=== PATIENT | female | born 1960 | race Caucasian/White ===

== ENCOUNTER 2019-03-19 06:00 | Outpatient (RCR) | payer BC, SELFPAY | END 2019-04-18 00:01 | LOC: SPT 06:00 | PROVIDERS: Family Provider Nurse Practitioner; Visit Provider Physician Assistant | DX: M72.2 Plantar fascial fibromatosis (principal); M22.2X1 Patellofemoral disorders, right knee | CPT/HCPCS: 97110 ×2; 97140 ×2 ==

== ENCOUNTER 2019-04-19 06:00 | Outpatient (RCR) | payer BC, SELFPAY | END 2019-05-19 23:59 | disposition home or self-care (01) | LOC: SPT 06:00 | PROVIDERS: Family Provider Nurse Practitioner; PCP Nurse Practitioner; Visit Provider Nurse Practitioner | DX: M22.2X1 Patellofemoral disorders, right knee (principal); M22.2X2 Patellofemoral disorders, left knee | CPT/HCPCS: 97110 ==

== ENCOUNTER → 2019-06-13 15:54 | Outpatient (BNVA) | payer BC, SELFPAY | PROVIDERS: Family Provider Nurse Practitioner; PCP Nurse Practitioner; Visit Provider Nurse Practitioner | DX: E03.8 Other specified hypothyroidism (principal); E55.9 Vitamin D deficiency, unspecified; M47.16 Other spondylosis with myelopathy, lumbar region; M25.561 Pain in right knee | CPT/HCPCS: 73562; 82306; 84443 ==

== ENCOUNTER 2019-06-14 15:23 | Outpatient (REF) | payer SELFPAY ==
[2019-06-14 16:28] LABS: Estmated Average Glucose 117; Hemoglobin A1C 5.7 % (4.0-6.0)
[2019-06-14 19:24] LABS: Chol HDL Ratio 8.09 mg/dL (0.0-4.40); Cholesterol 186 mg/dL (0-200); Glucose 140 mg/dL (65-115); HDL Cholesterol 23 mg/dL (60-100); LDL Cholesterol Calculated 90 mg/dL (50-129); LDL HDL Ratio 3.91 RATIO (0.00-3.22); Triglycerides 363 mg/dL (0-150)
== END 2019-06-14 15:24 | disposition home or self-care (01) ==
LOC: LAB 15:23
PROVIDERS: Family Provider Nurse Practitioner; PCP Nurse Practitioner; Visit Provider Dermatology
DX: Z13.9 Encounter for screening, unspecified (principal)
CPT/HCPCS: 80061; 82947; 83036

== ENCOUNTER 2019-06-21 08:01 | Outpatient (CLI) | payer BC, SELFPAY ==
--- NOTE | 2019-06-21 08:00 | MR_ITS ---
WS: [id number] MRI LUMBAR SPINE NONCONTRAST HISTORY: back and leg pain COMPARISON: None available. TECHNIQUE: Sagittal and axial multisequence imaging is submitted. Straightening of the normal cervical lordosis. Disc osteophyte complex centrally at C4-5 with contact on the ventral cervical cord and mild deformity. Mild S-shaped scoliosis of the thoracolumbar spine. Increased T2 signal in the central cord. On this survey image there is an increased signal over a dis tance of 1.5 cm at C7-T1. Additional increased signal in the thoracic cord beginning near the T8 leve l through T11. Mild straightening of the normal lumbar lordosis. Severe disc space narrowing at L5-S1. There is mild disc desiccation throughout the remaining levels. No marrow edema or fracture. Conus terminates normally at L1-2 disc level. L1-L2: Normal. L2-L3: Mild facet and ligamentum flavum hypertrophy. Small amount of fluid in the facet joints with n o stenosis. L3-L4: Mild facet and ligamentum flavum arthropathy without stenosis. Small amount of fluid in the fa cet joints. L4-L5: Mild ligamentum flavum hypertrophy and facet arthropathy. Fluid in the facet joints bilaterall y. There is very mild narrowing of the thecal sac and subarticular recess encroachment. Annular fissu re centrally with no significant stenosis. L5-S1: Mild annular disc bulging and osteophytic ridging around the vertebral bodies. There is a cent ral disc osteophyte complex. Additional smaller complex in the LEFT foramen. No significant contact o n the nerve roots and only mild foraminal stenosis. S2 small, 8mm Tarlov cysts. Paravertebral soft tissues are normal. MR/MR lumbar spine wo con* [id number] IMPRESSION: 1. Advanced degenerative disc disease at L5-S1 with only mild disc osteophyte encroachment upon the thecal sac. No significant stenosis. 2. Multilevel mild facet joint arthropathy throughout the thoracic spine. 3. Multifocal syrinx throughout the cervical and thoracic cord as described ab ove. Recommend follow-up MRI with and without contrast of the thoracic spine. 4. Mild subarticular recess narrowing at L4-5 predominantly due to facet disea se.
== END 2019-06-21 08:02 | disposition home or self-care (01) ==
LOC: RADSHAW 08:03
PROVIDERS: Family Provider Nurse Practitioner; PCP Nurse Practitioner; Visit Provider Nurse Practitioner
DX: M47.897 Other spondylosis, lumbosacral region (principal); M54.5 Low back pain; M25.78 Osteophyte, vertebrae; G95.0 Syringomyelia and syringobulbia
CPT/HCPCS: 72148

== ENCOUNTER → 2019-06-28 14:43 | Outpatient (BNVA) | payer BC, SELFPAY | PROVIDERS: Family Provider Nurse Practitioner; PCP Nurse Practitioner; Visit Provider Nurse Practitioner | DX: M25.561 Pain in right knee (principal) | CPT/HCPCS: 73590 ==

== ENCOUNTER → 2020-01-23 14:57 | Outpatient (BNVA) | payer BC, SELFPAY | PROVIDERS: Family Provider Nurse Practitioner; PCP Nurse Practitioner; Visit Provider Nurse Practitioner | DX: I10 Essential (primary) hypertension (principal); E03.8 Other specified hypothyroidism; E55.9 Vitamin D deficiency, unspecified; M47.16 Other spondylosis with myelopathy, lumbar region | CPT/HCPCS: 80053; 80061; 82306; 82607; 84443 ==

== ENCOUNTER → 2020-07-17 15:54 | Outpatient (BNVA) | payer BC, SELFPAY | PROVIDERS: Family Provider Nurse Practitioner; PCP Nurse Practitioner; Visit Provider Nurse Practitioner | DX: M47.16 Other spondylosis with myelopathy, lumbar region (principal); E03.8 Other specified hypothyroidism; K06.9 Disorder of gingiva and edentulous alveolar ridge, unspecified | CPT/HCPCS: 80053; 84443 ==

== ENCOUNTER → 2020-07-26 09:17 | Outpatient (BNVA) | payer BC, SELFPAY | PROVIDERS: Family Provider Nurse Practitioner; PCP Nurse Practitioner; Visit Provider Nurse Practitioner | DX: R73.9 Hyperglycemia, unspecified (principal) | CPT/HCPCS: 83036 ==

== ENCOUNTER → 2020-10-10 10:43 | Outpatient (BNVA) | payer BC, SELFPAY | PROVIDERS: Family Provider Nurse Practitioner; PCP Nurse Practitioner; Visit Provider Nurse Practitioner Family | DX: Z11.52 Encounter for screening for COVID-19 (principal); J40 Bronchitis, not specified as acute or chronic | CPT/HCPCS: 87635 ==

== ENCOUNTER → 2020-10-14 09:33 | Outpatient (BNVA) | payer BC, SELFPAY | PROVIDERS: Family Provider Nurse Practitioner; PCP Nurse Practitioner; Visit Provider Nurse Practitioner | DX: E11.65 Type 2 diabetes mellitus with hyperglycemia (principal); E55.9 Vitamin D deficiency, unspecified; I10 Essential (primary) hypertension; E03.8 Other specified hypothyroidism; Z79.4 Long term (current) use of insulin | CPT/HCPCS: 80053; 80061; 82306; 83036; 84443 ==

== ENCOUNTER 2020-12-03 08:14 | Outpatient (CLI) | payer BC, SELFPAY ==
--- NOTE | 2020-12-03 08:30 | MM_ITS ---
WS: [id number] BILATERAL DIGITAL SCREENING MAMMOGRAPHY WITH CAD CLINICAL INFORMATION: Z12.39 - Encounter for other screening for malignant neop... HISTORY: Screening mammogram. No current complaints. COMPARISON: TECHNIQUE: Bilateral CC and MLO views. FINDINGS: Scattered fibroglandular densities bilaterally. No suspicious focal mass, asymmetry, calcifications, or architectural distortion. No evidence of malignancy. MM/[place] [id number] IMPRESSION: BI-RADS: 1-Negative FOLLOW UP: 1 Year Follow-up Recommend return to annual screening mammography.
== END 2020-12-03 08:15 | disposition home or self-care (01) ==
LOC: RADSHAW 08:17
PROVIDERS: PCP Nurse Practitioner; Visit Provider Nurse Practitioner Family
DX: Z12.31 Encounter for screening mammogram for malignant neoplasm of breast (principal)
CPT/HCPCS: 77067

== ENCOUNTER → 2021-01-16 14:55 | Outpatient (BNVA) | payer BC, SELFPAY | PROVIDERS: PCP Nurse Practitioner; Visit Provider Nurse Practitioner Family | DX: Z20.822 Contact with and (suspected) exposure to COVID-19 (principal); J98.8 Other specified respiratory disorders | CPT/HCPCS: 87635 ==

== ENCOUNTER → 2021-01-27 11:53 | Outpatient (BNVA) | payer BC, SELFPAY | PROVIDERS: PCP Nurse Practitioner; Visit Provider Nurse Practitioner | DX: E11.65 Type 2 diabetes mellitus with hyperglycemia (principal); Z79.4 Long term (current) use of insulin; R00.0 Tachycardia, unspecified | CPT/HCPCS: 80053; 83036 ==

== ENCOUNTER → 2021-02-19 11:13 | Outpatient (BNVA) | payer BC, SELFPAY | PROVIDERS: PCP Nurse Practitioner; Visit Provider Nurse Practitioner | DX: R19.7 Diarrhea, unspecified (principal) | CPT/HCPCS: 87493; 87506 ==

== ENCOUNTER → 2021-03-05 10:55 | Outpatient (BNVA) | payer BC, SELFPAY | PROVIDERS: PCP Nurse Practitioner; Visit Provider Nurse Practitioner | DX: K58.0 Irritable bowel syndrome with diarrhea (principal) | CPT/HCPCS: 85025; 85651; 86140 ==

== ENCOUNTER → 2021-03-25 12:12 | Outpatient (BNVA) | payer BC, SELFPAY | PROVIDERS: PCP Nurse Practitioner; Visit Provider Nurse Practitioner | DX: Z12.4 Encounter for screening for malignant neoplasm of cervix (principal) | CPT/HCPCS: 88175 ==

== ENCOUNTER → 2021-04-21 11:26 | Outpatient (BNVA) | payer OTHER, SELFPAY | PROVIDERS: PCP Nurse Practitioner; Visit Provider Nurse Practitioner | DX: E11.65 Type 2 diabetes mellitus with hyperglycemia (principal); Z79.4 Long term (current) use of insulin; E55.9 Vitamin D deficiency, unspecified; N39.0 Urinary tract infection, site not specified | CPT/HCPCS: 80053; 81000; 82306; 83036; 84443; 87077; 87086; 87184 ==

== ENCOUNTER 2021-06-19 12:15 | Emergency (ER) | payer OTHER, SELFPAY ==
[2021-06-19 12:37] VITALS: BP 141/85; PULSE 81; RESP 14; TEMP 36.6; O2SAT 95; BMI 32.9
--- NOTE | 2021-06-19 12:48 | CT_ITS ---
WS: [id number] CT CERVICAL TRAUMA TECHNIQUE: Noncontrast CT of the cervical spine with coronal and sagittal reformatted images. CLINICAL INFORMATION: fall, neck pain COMPARISON: None. DLP: 726.[address] scans at [facility] use at least one of these dose optimization techniques: automated e xposure control; mA and/or kV adjustment per patient size (includes targeted exams where dose is matc hed to clinical indication); or iterative reconstruction. FINDINGS: Straightening of the normal cervical lordosis. Mild cervical curve. Moderate spondylitic changes. Dis c space narrowing worse at C4-C5 C5-C6 and C6-C7. Disc osteophytic ridging with mild central canal st enosis C4-C5. Multilevel bony foraminal narrowing worse at RIGHT C3-C4, LEFT C4-C5, LEFT C5-C6 and LE FT C6-C7. Normal craniocervical junction. Normal C1-C2 articulation. Dens is normal in appearance. Normal occip ital condyles. No high-grade spinal canal narrowing. Normal C1 ring. No evidence of acute fracture or dislocation. Normal prevertebral soft tissues. Mastoids air cells are well aerated. CT/CT cervical spin wo con* [id number] IMPRESSION: 1. No evidence of acute fracture or dislocation in the cervical spine. 2. Nondepressed LEFT parietal skull fracture described on the head CT
--- NOTE | 2021-06-19 12:48 | XR_ITS ---
WS: [id number] Lumbar spine, 3 views, 06/19/2021 Clinical Data: fall, back pain Comparison: Lumbar spine, 07/05/2017. Findings: No compression fractures or subluxation is seen. There is degenerative disc narrowing at L5-S1. There is minimal osteophyte formation from L3 through L5. The transverse processes and SI joints are emerald l. XR/XR lumbar spine 2-3V* [id number] Impression: 1. Degenerative disc narrowing at L5-S1. 2. Osteoarthritic spurring L3-L5.
--- NOTE | 2021-06-19 12:48 | CT_ITS ---
WS: [id number] CT HEAD TECHNIQUE: Noncontrast CT of the head obtained from the skullbase to the vertex. CLINICAL INFORMATION: fall, keita/a, n/v COMPARISON: None. DLP: 831.[address] scans at [facility] use at least one of these dose optimization techniques: automated e xposure control; mA and/or kV adjustment per patient size (includes targeted exams where dose is matc hed to clinical indication); or iterative reconstruction. FINDINGS: No evidence of intracranial hemorrhage or mass effect. Ventricular system and basal cisterns are reynolds nt. Mild small vessel changes with mild parenchymal volume loss. Tiny chronic lacunar infarct RIGHT c audate. No extra-axial fluid collections. No evidence of mass or mass effect. Normal hermosillo-white diffe rentiation. Tiny nondepressed LEFT parietal skull fracture extending to the skull base. Small amount of underlyin g soft tissue edema. No visualized blood products. CT/CT head wo con* [id number] IMPRESSION: 1. No evidence of intracranial hemorrhage or mass effect. 2. Mild small vessel changes. Mild parenchymal volume loss. 3. Tiny nondepressed LEFT parietal skull fracture extending to the skull base. Small amount of underlying soft tissue edema. No visualized blood products. Notified GREYSON Amador at 06/19/2021 1:43 PM.
--- NOTE | 2021-06-19 12:50 | W.ED.HA ---
HPI - Headache General: Chief Complaint: Headache Stated Complaint: Fall, Hit head and back pain, dizzy Time Seen by Provider: 06/19/21 12:44 History of Present Illness: Patient fell last Wednesday on the ice striking her head first in her low back. Patient complains about headache nausea and vomiting decreased appetite feeling sleepy and feeling dizzy. Also complains about low back pain. History low back problems. Associated symptoms: Reports nausea and vomiting; Deny chest pain, fever(s) or rash Review of Systems Const: Denies: fever(s), chills or body aches Eyes: Denies: eye discomfort ENMT: Denies: throat pain Card: Denies: chest pain Resp: Denies: dyspnea GI: Reports: nausea and vomiting; Denies: abdominal pain Musc: Reports: neck pain and back pain Skin/Breast: Denies: rash Neuro: Reports: headache(s) and dizziness Psych: Denies: depression or suicidal ideation PFSH ED PFSH: Medical History Adult onset hypothyroidism Anxiety and depression Chronic gingival disease Diabetes mellitus with hyperglycemia, with long-term current use of insulin HTN, goal below 130/80 Lumbar spondylosis with myelopathy Sleep disorder Vitamin D deficiency Surgical History History of cholecystectomy History of tubal ligation Family History Other Cancer Diabetes Hypertension Social History Second hand smoke exposure: No Smoking risk assessment/counseling performed?: No Alcohol intake: current Alcohol intake frequency: holidays/special occasions only Desire information about alcohol rehabilitation?: No Counseling given: No Desire information about substance/drug rehabilitation?: No Counseling given: No Caregiver/support person: No Lives independently: Yes Household members: spouse Housing: House Marital status: service: No Current occupational status: employed History of recent travel: No Current gender identity: Female Physical Exam Const: COMMON NORMALS: no acute distress, patient oriented x3 and alert HENMT: COMMON NORMALS: normocephalic and external ears normal HEAD & SCALP: normocephalic EXTERNAL EAR: Yes external ears normal Eye: COMMON NORMALS: EOMs intact bilaterally Neck/C-Spine: COMMON NORMALS: no meningeal signs and no JVD CERVICAL SPINE: Yes Paracervical muscle tenderness Resp: COMMON NORMALS: normal respiratory effort and No use of accessory muscles Cardio: COMMON NORMALS: no JVD GI: INSPECTION: Yes normal to inspection Back/Pelvis: LUMBAR SPINE/LOWER BACK: Yes paraspinal muscle tenderness (Left side greater than right) Extremity: COMMON NORMALS: normal to inspection and full ROM Neuro: COMMON NORMALS: patient oriented x3 SENSORIUM/ORIENTATION: Yes alert MENINGEAL SIGNS: Yes no meningeal signs SPEECH: speech normal GAIT: Yes Normal gait present PUPIL EXAM: Normal pupillary reactivity/response: bilateral Psych: COMMON NORMALS: mental status grossly normal Skin: COMMON NORMALS: no rashes or lesions noted GENERAL SKIN EXAM: no rashes or lesions noted Course Vital Signs: Vital signs: Vital Signs Temperature 97.9 F 06/19/21 12:37 Pulse Rate 81 06/19/21 12:37 Respiratory Rate 14 06/19/21 12:37 Blood Pressure 141/85 06/19/21 12:37 Pulse Oximetry 95 06/19/21 12:37 MDM - Headache Medical Decision Making Patient presents with head pain and back pain from a fall that was sustained a week ago. Patient's been having some nausea and occasional vomiting. Has some dizziness. CTs and x-rays done CT revealed nondepressed parietal skull fracture on left side. No bleeding noted cervical CT was negative and low back x-rays were negative for any concerning findings. Case discussed with Dr. Campos referral was made neurologist. Patient provided prescription and follow-up instructions Lab Data Radiology Impressions Cervical Spine CT 06/19/21 12:48 IMPRESSION: 1. No evidence of acute fracture or dislocation in the cervical spine. 2. Nondepressed LEFT parietal skull fracture described on the head CT Head CT 06/19/21 12:48 IMPRESSION: 1. No evidence of intracranial hemorrhage or mass effect. 2. Mild small vessel changes. Mild parenchymal volume loss. 3. Tiny nondepressed LEFT parietal skull fracture extending to the skull base. Small amount of underlying soft tissue edema. No visualized blood products. Notified GREYSON Amador at 06/19/2021 1:43 PM. Lumbar Spine X-Ray 06/19/21 12:48 Impression: 1. Degenerative disc narrowing at L5-S1. 2. Osteoarthritic spurring L3-L5. Discharge Plan Discharge Patient Disposition: Home Clinical Impression: Fall due to ice or snow Qualifiers: Encounter type: initial encounter Qualified Code(s): W00.9XXA - Unspecified fall due to ice and snow, initial encounter Back pain Qualifiers: Back pain location: low back pain Chronicity: acute Back pain laterality: bilateral Sciatica presence: without sciatica Qualified Code(s): M54.50 - Low back pain, unspecified Fracture of parietal bone of skull Qualifiers: Encounter type: initial encounter Fracture type: closed Qualified Code(s): S02.0XXA - Fracture of vault of skull, initial encounter for closed fracture Condition: Stable Prescriptions: New Zofran 4 mg tablet 4 mg PO Q8H 3 Days Qty: 9 0RF Celebrex 100 mg capsule 100 mg PO BID Qty: 20 0RF No Action promethazine-DM 6.25-15 mg/5 mL syrup 5 - 10 ml PO Q6H PRN (Reason: cough) Qty: 473 0RF gabapentin 600 mg tablet 600 mg PO TID Qty: 180 1RF acetaminophen 500 mg capsule 500 mg PO .hs PRN0RF metformin 500 mg tablet extended release 24 hr 1,000 mg PO DAILY Qty: 180 1RF Hold Instructions: Loose stools (DME) nebulizer accessories Kit See Rx Instructions .Route Qty: 1 0RF Rx Instructions: As directed levothyroxine [Synthroid] 100 mcg tablet 100 mcg PO DAILY Qty: 90 1RF cyclobenzaprine 10 mg tablet 10 mg PO BID Qty: 180 1RF chlorhexidine gluconate [Peridex] 0.12 % mouthwash 15 ml buccal BID Qty: 118 0RF amitriptyline 100 mg tablet 100 mg PO .at bedtime Qty: 90 1RF terbinafine HCl 250 mg tablet 250 mg PO DAILY 30 Days Qty: 30 2RF Farxiga 10 mg tablet 10 mg PO QAM Qty: 90 0RF nystatin 100,000 unit/gram cream 1 applic topical BID Qty: 30 1RF (DME) Disposable nebulizer circuit See Rx Instructions .ROUTE .MEDSUPPLY Qty: 1 0RF Rx Instructions: As directed Questran Light 4 gram powder 4 g PO TID Qty: 210 0RF Rx Instructions: administer w/meal; avoid other meds within 1hr before or 4-6hr after dose hyoscyamine sulfate [Levbid] 0.375 mg tablet extended release 12 hr 0.375 mg PO Q12H Qty: 60 0RF (DME) lancets [ReliOn Thin Lancets] 26 gauge misc See Rx Instructions .Route Qty: 100 2RF Rx Instructions: use one daily metoprolol succinate [Toprol XL] 50 mg tablet extended release 24 hr 50 mg PO DAILY Qty: 90 0RF diclofenac sodium 1 % gel 2 g TOPICAL QID PRN (Reason: pain) Qty: 300 0RF nitrofurantoin monohyd/m-cryst [Macrobid] 100 mg capsule 100 mg PO Q12H 7 Days Qty: 14 0RF Rx Instructions: must administer with a meal/food buspirone 10 mg tablet 10 mg PO BID Qty: 180 0RF Ozempic 0.25 mg or 0.5 mg(2 mg/1.5 mL) pen injector 0.5 mg SUBCUT .weekly Qty: 1.5 2RF (DME) ReliOn Prime Test Strips Strip See Rx Instructions .Route Qty: 100 5RF Rx Instructions: use 3 times day as needed Discharge Orders: Discharge ED (Routine); Ordered 06/19/21 Ordered By: Hector Bradshaw Referrals: Kiara Murray, VINNIEC [Primary Care Provider] - Discharge Diet: Advance as tolerated Discharge Activity: Increase activity as tolerated Patient Instructions: Skull Fracture (ED) Activity Restrictions/Additional Instructions: Follow-up with medical provider as directed. Take medications as prescribed. Return to the ER or your medical provider if condition worsens. Please read and understand discharge instructions. If any questions ask please. Can apply ice to areas of discomfort. Hospital will contact you with a follow-up appointment for the neurologist. Coding Level of Care Code ED Manager Home Improvement for [facility] Fwd Exam Comprehensive
--- NOTE | 2021-06-20 09:25 | DCPLANNER ---
Addendum entered by Georgie Maravilla 12/09/21 14:10: patient had a follow up appointment scheduled with neurology - patient did not attend appointment. Addendum entered by Georgie Maravilla 07/22/21 15:32: Patient has a follow up appointment scheduled for September at 10:[address] Charles. Clinic will notify patient with appointment information. Addendum entered by Georgie Maravilla 07/17/21 06:51: cytology manager sent a message to neurology to confirm if an appointment had been scheduled for patient. Original Note: cytology manager had message to schedule a follow up appointment for patient with neurology. cytology manager emailed patients information to the neurology clinic. Patients information will be printed and reviewed. Clinic will call patient with appointment information.
== END 2021-06-19 14:19 | disposition home or self-care (01) ==
PROVIDERS: Emergency Provider Nurse Practitioner Family; PCP Nurse Practitioner
DX: M54.50 Low back pain, unspecified (principal); S02.0XXA Fracture of vault of skull, initial encounter for closed fracture; Z79.84 Long term (current) use of oral hypoglycemic drugs; E11.9 Type 2 diabetes mellitus without complications; I10 Essential (primary) hypertension; W00.0XXA Fall on same level due to ice and snow, initial encounter
CPT/HCPCS: 70450; 72100; 72125; 99281

== ENCOUNTER → 2021-07-22 16:42 | Outpatient (BNVA) | payer OTHER, SELFPAY | PROVIDERS: PCP Nurse Practitioner; Visit Provider Nurse Practitioner | DX: E03.8 Other specified hypothyroidism (principal); E11.65 Type 2 diabetes mellitus with hyperglycemia; Z79.4 Long term (current) use of insulin | CPT/HCPCS: 80053; 83036; 84443 ==

== ENCOUNTER → 2021-09-25 16:27 | Outpatient (BNVA) | payer OTHER, SELFPAY | PROVIDERS: PCP Nurse Practitioner; Visit Provider Nurse Practitioner | DX: E11.65 Type 2 diabetes mellitus with hyperglycemia (principal); Z79.4 Long term (current) use of insulin; E55.9 Vitamin D deficiency, unspecified; B37.0 Candidal stomatitis; L03.90 Cellulitis, unspecified | CPT/HCPCS: 80053; 80061; 82306; 83036; 84443 ==

== ENCOUNTER → 2021-12-31 10:27 | Outpatient (BNVA) | payer OTHER, SELFPAY | PROVIDERS: PCP Nurse Practitioner; Visit Provider Nurse Practitioner | DX: E11.65 Type 2 diabetes mellitus with hyperglycemia (principal); Z79.4 Long term (current) use of insulin; F41.9 Anxiety disorder, unspecified; F32.9 Major depressive disorder, single episode, unspecified; M47.16 Other spondylosis with myelopathy, lumbar region; R00.0 Tachycardia, unspecified; N39.0 Urinary tract infection, site not specified | CPT/HCPCS: 80053; 80061; 81000; 83036; 84443; 87077; 87086; 87184 ==

== ENCOUNTER 2022-02-03 09:38 | Emergency (ER) | payer OTHER, SELFPAY ==
[2022-02-03 09:56] VITALS: BP 139/93; PULSE 93; RESP 14; TEMP 36.8; O2SAT 100; BMI 33.4
--- NOTE | 2022-02-03 10:17 | CT_ITS ---
WS: [id number] CT HEAD TECHNIQUE: Noncontrast CT of the head obtained from the skullbase to the vertex. CLINICAL INFORMATION: fall and hit head. +LOC COMPARISON: June 19, 2021 DLP: 1299.[address] scans at [facility] use at least one of these dose optimization techniques: automated e xposure control; mA and/or kV adjustment per patient size (includes targeted exams where dose is matc hed to clinical indication); or iterative reconstruction. FINDINGS: No evidence of intracranial hemorrhage or mass effect. Ventricular system and basal cisterns are reynolds nt. Mild small vessel changes with mild parenchymal volume loss. No extra-axial fluid collections. No evidence of mass or mass effect. Prior healed LEFT parietal nondepressed skull fracture. Paranasal sinuses and mastoid air cells are well aerated. .Normal visualized soft tissues. CT/CT head wo con* [id number] IMPRESSION: 1. No evidence of intracranial hemorrhage or mass effect. 2. No acute intracranial findings.
--- NOTE | 2022-02-03 10:17 | XRR_ITS ---
PROCEDURE INFORMATION: Exam: XR Right Knee Exam date and time: 02/03/2022 10:25 AM Age: 61 years old Clinical indication: Injury or trauma; Fall; Blunt trauma; Injury date: Today; Injury details: Tripped over her shoe and fell back words and back of head hit oak table. She also endorses having some right knee and left shoulder pain as well. She was able to ambulate on right knee but did endorse having some pain. ; Additional info: Fall with knee pain TECHNIQUE: Imaging protocol: Radiologic exam of the Right knee. Views: 3 views. COMPARISON: CR XR knee RT 3V* [id number] 06/13/2019 3:54 PM FINDINGS: Bones/joints: Similar expansile lesion in the proximal fibular diaphysis, again likely reflecting an enchondroma. This appears unchanged since 06/28/2019. No acute fracture or malalignment. Mild tricompartmental degenerative changes. No joint effusion. Patellar enthesopathy. Soft tissues: Normal. XR/XR knee RT 3V* [id number] IMPRESSION: No acute fracture or malalignment.
--- NOTE | 2022-02-03 10:17 | CT_ITS ---
WS: [id number] CT CERVICAL TRAUMA TECHNIQUE: Noncontrast CT of the cervical spine with coronal and sagittal reformatted images. CLINICAL INFORMATION: fall and hit head-neck pain COMPARISON: None. DLP: 1299.[address] scans at [facility] use at least one of these dose optimization techniques: automated e xposure control; mA and/or kV adjustment per patient size (includes targeted exams where dose is matc hed to clinical indication); or iterative reconstruction. FINDINGS: Straightening of the normal cervical lordosis. Mild spondylitic changes. Disc space narrowing worse a t C4-C5 C5-C6 and C6-C7. Disc osteophyte complex C4-C5 with osteophytic ridging. Normal craniocervica l junction. Normal C1-C2 articulation. Dens is normal in appearance. Normal occipital condyles. No hi gh-grade spinal canal narrowing. Normal C1 ring. No evidence of acute fracture or dislocation. Normal prevertebral soft tissues. Mastoids air cells are well aerated. CT/CT cervical spin wo con* [id number] IMPRESSION: No evidence of acute fracture or dislocation.
--- NOTE | 2022-02-03 10:17 | XRR_ITS ---
PROCEDURE INFORMATION: Exam: XR Left Shoulder Exam date and time: 02/03/2022 10:25 AM Age: 61 years old Clinical indication: Injury or trauma; Fall; Blunt trauma (contusions or hematomas); Injury details: Tripped over her shoe and fell back words and back of head hit oak table. She also endorses having some right knee and left shoulder pain as well. She was able to ambulate on right knee but did endorse having some pain. ; Additional info: Fall with shoulder pain TECHNIQUE: Imaging protocol: Radiologic exam of the Left shoulder. Views: 2 or more views. COMPARISON: CT cervical spin wo con* [id number] 06/19/2021 1:15 PM FINDINGS: Bones/joints: No acute fracture or malalignment. Moderate acromioclavicular and glenohumeral joint degenerative changes. Soft tissues: Normal. XR/XR shoulder LT min 2V* [id number] IMPRESSION: No acute fracture or malalignment.
--- NOTE | 2022-02-03 10:18 | ED_ITS ---
HPI - Fall General: Chief Complaint: Fall Stated Complaint: fall, hit head Time Seen by Provider: 02/03/22 09:44 History of Present Illness: Patient is a 61-year-old female comes to the ED with head injury. Patient says head injury occurred just prior to arrival. She was walking in her house and tripped over her shoe and fell back words and back of head hit oak table. Patient was found on the ground by her . Endorses loss of consciousness. Since fall and head injury she is feeling tired and is having a headache and neck pain. She rates her pain a 10 out of 10. She also endorses having some right knee and left shoulder pain as well. She was able to ambulate on right knee but did endorse having some pain. Past medical history of a fall 8 to 9 months ago where she sustained a skull fracture. Denies any seizure history. Endorses feeling really drowsy. Patient denies being on any blood thinners. Associated symptoms-after fall: Reports headache(s) and neck pain; Denies abdominal pain, chest pain or hematuria Review of Systems Const: Reports: fatigue (Drowsy); Denies: fever(s) or chills Eyes: Denies: change in vision or eye discomfort ENMT: Denies: throat pain, odynophagia, nasal discharge or nasal congestion Card: Denies: chest pain, palpitations, edema, swelling of feet/ankles, dyspnea on exertion or orthopnea Resp: Denies: dyspnea, productive cough or non-productive cough GI: Denies: abdominal pain, nausea, vomiting, diarrhea, constipation or hematochezia : Denies: flank pain, dysuria or hematuria Musc: Reports: neck pain and extremity pain (Left shoulder and right knee); Denies: back pain or extremity swelling Skin/Breast: Denies: rash or new lesions Neuro: Reports: headache(s); Denies: numbness in extremities or weakness in extremities PFSH ED PFSH: Medical History Adult onset hypothyroidism Anxiety and depression Chronic gingival disease Diabetes mellitus with hyperglycemia, with long-term current use of insulin HTN, goal below 130/80 Lumbar spondylosis with myelopathy Sleep disorder Vitamin D deficiency Surgical History History of cholecystectomy History of tubal ligation Family History Other Cancer Diabetes Hypertension Social History Smoking and tobacco status: never smoked Second hand smoke exposure: No Smoking risk assessment/counseling performed?: No Alcohol intake: current Alcohol intake frequency: holidays/special occasions only Desire information about alcohol rehabilitation?: No Counseling given: No Desire information about substance/drug rehabilitation?: No Counseling given: No Caregiver/support person: No Lives independently: Yes Household members: spouse Housing: House Marital status: service: No Current occupational status: employed History of recent travel: No Current gender identity: Female Physical Exam Const: COMMON NORMALS: no acute distress, patient oriented x3 and alert GENERAL APPEARANCE: cooperative HENMT: COMMON NORMALS: normocephalic HEAD & SCALP: normocephalic MOUTH: Normal oral and palatal mucosa present THROAT: posterior oropharynx normal and uvula midline Eye: COMMON NORMALS: Equal, round and reactive pupils present, EOMs intact bilaterally and conjunctivae normal GENERAL EYE: appearance normal, both eyes and all related structures CONJUNCTIVA: Yes conjunctivae normal PUPIL: Yes Equal, round and reactive pupils present Neck/C-Spine: COMMON NORMALS: supple GENERAL: Yes normal visual inspection Resp: COMMON NORMALS: normal respiratory effort, No retractions, No use of accessory muscles and clear to auscultation bilaterally AUSCULTATION: clear to auscultation bilaterally Cardio: COMMON NORMALS: regular rate, regular rhythm, S1 normal heart sound present, S2 normal heart sound present, No gallops present (Cardio), No clicks present (Cardio), No murmurs present (Cardio) and Peripheral pulses 2+ throughout RATE: regular rate RHYTHM: regular rhythm HEART SOUNDS: S1 normal heart sound present and S2 normal heart sound present PERIPHERAL PULSES: Peripheral pulses 2+ throughout GI: COMMON NORMALS: Normal to inspection, nondistended, normoactive bowel sounds present, Soft to palpation, non-tender and no masses PALPATION: Yes Soft to palpation : COMMON NORMALS: Yes no CVA tenderness BLADDER/KIDNEY EXAM: Yes no CVA tenderness Back/Pelvis: COMMON NORMALS: no CVA tenderness Extremity: COMMON NORMALS: normal to inspection Neuro: COMMON NORMALS: patient oriented x3 SENSORIUM/ORIENTATION: Yes alert GAIT: Yes Normal gait present Skin: GENERAL SKIN EXAM: dry skin Course Vital Signs: Vital signs: Vital Signs Temperature 98.3 F 02/03/22 09:56 Pulse Rate 93 02/03/22 09:56 Respiratory Rate 18 02/03/22 10:32 Blood Pressure 139/93 02/03/22 09:56 Pulse Oximetry 100 02/03/22 09:56 Oxygen Delivery Me thod 02/03/22 09:56 MDM - Fall Medical Decision Making Patient is a 61-year-old female comes to the ED with head injury. Patient says head injury occurred just prior to arrival. She was walking in her house and tripped over her shoe and fell back words and back of head hit oak table. Patient was found on the ground by her . Endorses loss of consciousness. She is complaining of having a headache, neck pain, left shoulder and right kne e pain from fall. Vitals are stable. Exam is benign. CT cervical spine, CT head showed no acute findings or fractures noted. X-ray of right knee and left shoulder showed no acute fractures or findings. Patient was stable for discharge home. She was sent home with a prescription for muscle relaxer and Celebrex. Follow-up with PCP in the next 7 to 10 days for reevaluation. Patient understood and agreed with plan. Lab Data Radiology Impressions Cervical Spine CT 02/03/22 10:17 IMPRESSION: No evidence of acute fracture or dislocation. Head CT 02/03/22 10:17 IMPRESSION: 1. No evidence of intracranial hemorrhage or mass effect. 2. No acute intracranial findings. Knee X-Ray 02/03/22 10:17 IMPRESSION: No acute fracture or malalignment. Shoulder X-Ray 02/03/22 10:17 IMPRESSION: No acute fracture or malalignment. Laboratory Results POC Glucose 168 mg/dL (70-110) H 02/03/22 10:19 Discharge Plan Discharge Patient Disposition: Home Clinical Impression: Minor head injury with loss of consciousness Qualifiers: Encounter type: initial encounter Qualified Code(s): S06.9X9A - Unspecified intracranial injury with loss of consciousness of unspecified duration, initial encounter Left shoulder pain Qualifiers: Chronicity: acute Qualified Code(s): M25.512 - Pain in left shoulder Condition: Stable Prescriptions: New methocarbamol 750 mg tablet 750 mg PO Q8H PRN (Reason: muscle spasms and pain) Qty: 15 0RF celecoxib 100 mg capsule 100 mg PO BID PRN (Reason: pain) Qty: 20 0RF No Action acetaminophen 500 mg capsule 500 mg PO .hs PRN (DME) nebulizer accessories Kit See Rx Instructions .Route Qty: 1 0RF Rx Instructions: As directed terbinafine HCl 250 mg tablet 250 mg PO DAILY 30 Days Qty: 30 2RF nystatin 100,000 unit/gram cream 1 applic topical BID Qty: 30 1RF nystatin 100,000 unit/mL suspension 10 ml PO .2 times Qty: 200 0RF Rx Instructions: swish and swallow mupirocin 2 % ointment 1 applic topical BID Qty: 22 0RF chlorhexidine gluconate [Peridex] 0.12 % mouthwash 15 ml buccal BID Qty: 118 0RF Rhofade 1 % cream 1 applic topical DAILY Qty: 30 0RF Rx Instructions: Apply to face once daily in the morning Levemir FlexTouch U-100 Insuln 100 unit/mL (3 mL) insulin pen 30 unit SUBCUT DAILY Qty: 15 2RF levothyroxine [Synthroid] 75 mcg tablet 75 mcg PO DAILY Qty: 90 0RF Farxiga 10 mg tablet 10 mg PO QAM Qty: 90 0RF buspirone 10 mg tablet 10 mg PO BID Qty: 180 0RF amitriptyline 50 mg tablet 50 mg PO .at bedtime Qty: 90 0RF cyclobenzaprine 10 mg tablet 10 mg PO BID Qty: 180 0RF gabapentin 600 mg tablet See Rx Instructions PO .COMPLEX Qty: 180 0RF Rx Instructions: 600mg AM and 1200mg PM orally; metoprolol succinate [Toprol XL] 50 mg tablet extended release 24 hr 50 mg PO DAILY Qty: 90 0RF (DME) Disposable nebulizer circuit See Rx Instructions .ROUTE .MEDSUPPLY Qty: 1 0RF Rx Instructions: As directed Questran Light 4 gram powder 4 g PO TID Qty: 210 0RF Rx Instructions: administer w/meal; avoid other meds within 1hr before or 4-6hr after dose (DME) lancets [ReliOn Thin Lancets] 26 gauge misc See Rx Instructions .Route Qty: 100 2RF Rx Instructions: use one daily diclofenac sodium 1 % gel 2 g TOPICAL QID PRN (Reason: pain) Qty: 300 0RF Hold Instructions: Doctor's Order (DME) ReliOn Prime Test Strips Strip See Rx Instructions .Route Qty: 100 5RF Rx Instructions: use 3 times day as needed (DME) pen needle, diabetic 33 gauge x 5/32 needle See Rx Instructions .ROUTE .MEDSUPPLY Qty: 100 5RF Rx Instructions: 1 times day levofloxacin 500 mg tablet 500 mg PO Q24H Qty: 5 0RF Discharge Orders: Discharge ED (Routine); Ordered 02/03/22 Ordered By: Mando Mendoza Referrals: Kiara Murray, COMPUTER HARDWARE TECHNICIAN-C [Primary Care Provider] - Discharge Diet: Regular Discharge Activity: Increase activity as tolerated Patient Instructions: Head Injury (ED) Activity Restrictions/Additional Instructions: Follow-up with medical provider as directed in the next 5 to 7 days for reevaluation. Take medications as prescribed. Return to the ER or your medical provider if condition worsens. Please read and understand discharge instructions. Thank you for choosing [facility] for your healthcare needs today. Please realize this is an emergency room and that we are providing you with a medical screening exam and this may not be complete and all inclusive of all the testing and or work up that you may need to determine your ailment or severity of your illness. It is very important that you follow up as instructed or that you return to the Emergency Department should you have concerns or if your condition changes or worsens in any way. Coding Level of Care Code ED Chip Tester for Cody Beltrán Exam Comprehensive
[2022-02-03 10:23] LABS: Glucose Point of Care 168 mg/dL (70-110)
[2022-02-03] MEDS: ondansetron 2 mg/ML SDV 2 mL 4 MG IM (10:31)
[2022-02-03 10:32] VITALS: RESP 18
[2022-02-03] MEDS: morphine 4 mg/mL SDV 1 mL IM (10:32)
== END 2022-02-03 11:44 | disposition home or self-care (01) ==
PROVIDERS: Emergency Provider Physician Assistant; PCP Nurse Practitioner
DX: S06.899A Other specified intracranial injury with loss of consciousness of unspecified duration, initial encounter (principal); Z79.4 Long term (current) use of insulin; E11.9 Type 2 diabetes mellitus without complications; I10 Essential (primary) hypertension; W18.09XA Striking against other object with subsequent fall, initial encounter
CPT/HCPCS: 36416; 70450; 72125; 73030; 73562; 82962; 96372; 99285; J2270; J2405

== ENCOUNTER → 2022-02-10 14:45 | Outpatient (BNVA) | payer OTHER, SELFPAY | PROVIDERS: PCP Nurse Practitioner; Visit Provider Nurse Practitioner | DX: E11.65 Type 2 diabetes mellitus with hyperglycemia (principal); Z79.4 Long term (current) use of insulin | CPT/HCPCS: 81000 ==

== ENCOUNTER → 2022-05-11 15:16 | Outpatient (BNVA) | payer OTHER, SELFPAY | PROVIDERS: PCP Nurse Practitioner; Visit Provider Nurse Practitioner | DX: E11.65 Type 2 diabetes mellitus with hyperglycemia (principal); Z79.4 Long term (current) use of insulin | CPT/HCPCS: 80053; 80061; 81000; 83036; 84443 ==

== ENCOUNTER → 2022-07-06 13:48 | Outpatient (BNVA) | payer OTHER, SELFPAY | PROVIDERS: PCP Nurse Practitioner; Visit Provider Nurse Practitioner | DX: E11.65 Type 2 diabetes mellitus with hyperglycemia (principal); Z79.4 Long term (current) use of insulin; E03.8 Other specified hypothyroidism | CPT/HCPCS: 80053; 81000; 83036; 84443 ==

== ENCOUNTER 2022-08-28 02:13 | Emergency (ER) | payer OTHER, MEDICAID, SELFPAY ==
--- NOTE | 2022-08-28 02:15 | ECG_ITS ---
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 Measurements Intervals [place] Rate: 103 P: 37 VT: 140 QRS: -11 QRSD: 100 T: 54 QT: 376 QTc: 494 Interpretive Statements SINUS TACHYCARDIA POSSIBLE LEFT ATRIAL ENLARGEMENT [-0.1mV P-WAVE IN V1/V2] INCOMPLETE RIGHT BUNDLE BRANCH BLOCK [90+ ms QRS DURATION, TERMINAL R IN V1/V2, 40+ ms S IN I/aVL/V4/V5/V6] POSSIBLE ANTERIOR MYOCARDIAL INFARCTION , PROBABLY OLD [30 ms Q WAVE IN V3/V4, OR R < 0.2 mV IN V4] ABNORMAL RHYTHM ECG No previous ECG available for comparison Electronically Signed On 08-28-2022 11:57:16 CDT by Bradley Evrin M.D. [id number]
[2022-08-28 02:17] VITALS: BP 144/88; PULSE 102; RESP 18; TEMP 36.6; O2SAT 93; BMI 33.4
--- NOTE | 2022-08-28 02:25 | XRR_ITS ---
PROCEDURE INFORMATION: Exam: XR Chest Exam date and time: 08/28/2022 2:43 AM Age: 62 years old Clinical indication: Pain; Chest pressure; Additional info: Cp TECHNIQUE: Imaging protocol: Radiologic exam of the chest. Views: 1 view. COMPARISON: CT chest abdpel w/*[id number] 10/08/2017 1:37 PM FINDINGS: Lungs: Some strandy and hazy opacities are seen in lower hemithoraces bilaterally likely representing atelectasis versus parenchymal pleural scarring. Pleural spaces: See Lungs finding. Heart/Mediastinum: Unremarkable. No cardiomegaly. Bones/joints: Unremarkable. XR/XR chest 1V portable [id number] IMPRESSION: Probable bilateral basilar atelectasis versus parenchymal or pleural scarring.
--- NOTE | 2022-08-28 02:26 | ED_ITS ---
HPI - URI/Sore Throat General: Chief Complaint: Upper Respiratory Infection Stated Complaint: Jaw and Arm Pain Time Seen by Provider: 08/28/22 02:18 Source: patient Mode of arrival: ambulatory Limitations: no limitations History of Present Illness: 62-year-old female states she has had a cough over the last 3 days she states that she has been having sharp chest pains for the last 2 days states pain is much worse with palpation or movement and when she coughs she states she has pain in her neck and arm as well is also worse with movement and palpation. The pain sharp in nature rates an 8 out of 10 she denies any dyspnea denies any fevers. Associated symptoms: Reports chest pain; Deny abdominal pain, chills, diarrhea, fever(s), nausea or vomiting Review of Systems Const: Denies: fever(s) or chills Eyes: Denies: blurry vision or eye discomfort ENMT: Denies: throat pain or dental pain Card: Reports: chest pain Resp: Reports: non-productive cough; Denies: dyspnea GI: Denies: abdominal pain, nausea, vomiting or diarrhea : Denies: dysuria Musc: Denies: neck pain or back pain Skin/Breast: Denies: rash PFSH ED PFSH: Medical History Adult onset hypothyroidism Anxiety and depression Chronic gingival disease Diabetes mellitus with hyperglycemia, with long-term current use of insulin HTN, goal below 130/80 Lumbar spondylosis with myelopathy Sleep disorder Vitamin D deficiency Surgical History History of cholecystectomy History of tubal ligation Family History Other Cancer Diabetes Hypertension Social History Smoking and tobacco status: never smoked Second hand smoke exposure: No Smoking risk assessment/counseling performed?: No Alcohol intake: current Alcohol intake frequency: holidays/special occasions only Desire information about alcohol rehabilitation?: No Counseling given: No Substance/Drug Use: never Desire information about substance/drug rehabilitation?: No Counseling given: No Caregiver/support person: No Lives independently: Yes Household members: spouse Housing: House Marital status: service: No Current occupational status: employed Do you think of yourself as: Straight/Heterosexual Current gender identity: Female Physical Exam Const: COMMON NORMALS: no acute distress and patient oriented x3 HENMT: COMMON NORMALS: normocephalic and atraumatic HEAD & SCALP: normocephalic and atraumatic Eye: COMMON NORMALS: conjunctivae normal CONJUNCTIVA: Yes conjunctivae normal Neck/C-Spine: COMMON NORMALS: full ROM and supple Chest: COMMONS NORMALS: normal inspection of the chest OTHER: point tender in center of chest Resp: COMMON NORMALS: normal respiratory effort, No retractions, No use of accessory muscles and clear to auscultation bilaterally AUSCULTATION: clear to auscultation bilaterally Cardio: COMMON NORMALS: regular rate, regular rhythm and No murmurs present (Cardio) RATE: regular rate RHYTHM: regular rhythm GI: COMMON NORMALS: Normal to inspection, nondistended, normoactive bowel sounds present, Soft to palpation, non-tender and no masses PALPATION: Yes Soft to palpation Extremity: COMMON NORMALS: normal to inspection and full ROM Neuro: COMMON NORMALS: patient oriented x3, moves all extremities and no focal motor deficits Psych: COMMON NORMALS: mental status grossly normal, Normal thought process present and cooperative THOUGHT PROCESS: Normal thought process present Skin: COMMON NORMALS: no rashes or lesions noted and no wounds GENERAL SKIN EXAM: no rashes or lesions noted Course Vital Signs: Vital signs: Vital Signs Temperature 97.8 F 08/28/22 02:17 Pulse Rate 93 08/28/22 03:40 Respiratory Rate 12 08/28/22 03:40 Blood Pressure 118/70 08/28/22 03:40 Pulse Oximetry 90 08/28/22 03:40 Oxygen Delivery Me thod Nasal Cannula 08/28/22 03:25 Oxygen Flow Rate 2 08/28/22 03:25 MDM - URI/Sore Throat Medical Decision Making Patient presents here with cough she is currently on antibiotics from her PCP x- ray here shows no acute abnormalities her blood work here is normal her chest pains likely muscular in nature she is very point tender likely from coughing we will place her on pain meds Naprosyn and hydrocodone she is to follow-up with her PCP and return if worsening she understands and agrees to plan she has no signs of pulmonary embolism or acute coronary syndrome. Medical Records I reviewed the patient's medical records. Lab Data I reviewed the patient's lab results. 08/28/22 02:36 08/28/22 02:36 Laboratory Results WBC 9.8 10^3/uL (4.0-10.0) 08/28/22 02:36 RBC 6.04 10^6/uL (4.1-5.3) H 08/28/22 02:36 Hgb 17.9 g/dL (11.5-15.3) H 08/28/22 02:36 Hct 54.5 % (37.0-47.0) H 08/28/22 02:36 MCV 90.2 fl (81-99) 08/28/22 02:36 MCH 29.6 pg (28.0-34.0) 08/28/22 02:36 MCHC 32.8 g/dL (30.0-36.0) 08/28/22 02:36 RDW 13.8 % (12.1-15.1) 08/28/22 02:36 Plt Count 145 10^3/cmm (130-400) 08/28/22 02:36 MPV 12.3 fL (7.4-10.4) H 08/28/22 02:36 Neut % (Auto) 54.7 % 08/28/22 02:36 Lymph % (Auto) 33.5 % 08/28/22 02:36 [place] % (Auto) 5.8 % 08/28/22 02:36 Eos % (Auto) 4.6 % 08/28/22 02:36 Baso % (Auto) 1.0 % 08/28/22 02:36 Neut # (Auto) 5.36 10^3/uL (1.8-7.7) 08/28/22 02:36 Lymph # (Auto) 3.3 10^3/uL (0.8-4.8) 08/28/22 02:36 [place] # (Auto) 0.6 10^3/uL (0.2-0.9) 08/28/22 02:36 Eos # (Auto) 0.5 10^3/uL (0.0-0.8) 08/28/22 02:36 Baso # (Auto) 0.1 10^3/uL (0.0-0.1) 08/28/22 02:36 Nucleated RBC % (auto) 0 % 08/28/22 02:36 Nucleated RBCs # 0.0 /100WBC 08/28/22 02:36 Sodium 135 mmol/L (136-145) L 08/28/22 02:36 Potassium 3.8 mmol/L (3.5-5.1) 08/28/22 02:36 Chloride 97 mmol/L (98-107) L 08/28/22 02:36 Carbon Dioxide 25 mmol/L (22-29) 08/28/22 02:36 Anion Gap 16.8 (5-19) 08/28/22 02:36 BUN 21 mg/dL (8-23) 08/28/22 02:36 Creatinine 0.8 mg/dL (0.5-0.9) 08/28/22 02:36 GFR Calculation 72.9 mL/min (90-130) L 08/28/22 02:36 Glucose 349 mg/dL (65-115) H 08/28/22 02:36 Calculated Osmolality 297 mOsm/kg (285-295) H 08/28/22 02:36 Calcium 9.7 mg/dL (8.5-10.5) 08/28/22 02:36 Total Bilirubin 0.7 mg/dL (0.15-1.2) 08/28/22 02:36 AST 34 U/L (0-32) H 08/28/22 02:36 ALT 45 U/L (0-33) H 08/28/22 02:36 Alkaline Phosphatase 142 U/L (35-105) H 08/28/22 02:36 Troponin T Baseline 6 ng/L (0-10) 08/28/22 02:36 Total Protein 7.8 g/dL (6.6-8.7) 08/28/22 02:36 Albumin 3.8 g/dL (3.5-5.2) 08/28/22 02:36 Globulin 4.0 g/dL (1.3-4.6) 08/28/22 02:36 SARS-CoV-2 Ag (Rapid) negative (Negative) 08/28/22 02:36 Imaging Data CXR: I personally reviewed and interpreted this imaging study as follows: My impression: no acute abnormality EKG Data EKG 1: I personally reviewed and interpreted this EKG as follows: EKG interpretation date: 08/28/22 EKG interpretation time: 02:20 Interpretation: sinus tach hr [address] or t wave abnormalities qrs 100 qtc 436 Discharge Plan Discharge Patient Disposition: Home Clinical Impression: Upper respiratory infection, Chest pain Condition: Stable Prescriptions: New hydrocodone-acetaminophen 5-325 mg tablet 1 tab PO Q6H PRN (Reason: pain) Qty: 14 0RF Naprosyn 500 mg tablet 500 mg PO BID PRN (Reason: pain) Qty: 20 0RF No Action acetaminophen 500 mg capsule 500 mg PO .hs PRN (DME) nebulizer accessories Kit See Rx Instructions .Route Qty: 1 0RF Rx Instructions: As directed nystatin 100,000 unit/gram cream 1 applic topical BID Qty: 30 1RF nystatin 100,000 unit/mL suspension 10 ml PO .2 times Qty: 200 0RF Rx Instructions: swish and swallow mupirocin 2 % ointment 1 applic topical BID Qty: 22 0RF Rhofade 1 % cream 1 applic topical DAILY Qty: 30 0RF Rx Instructions: Apply to face once daily in the morning insulin aspart U-100 [Novolog FlexPen U-100 Insulin] 100 unit/mL (3 mL) in sulin pen See Rx Instructions SUBCUT TID Qty: 15 0RF Rx Instructions: 4-24U subcutaneously three times daily; 110-129=3U 130-150=6U 151-200=9U 201- 250=12U 251-300=15U 301-350=18U 351-400=21U >400=24U Levemir FlexTouch U-100 Insuln 100 unit/mL (3 mL) insulin pen 50 unit SUBCUT DAILY Qty: 15 0RF amitriptyline 50 mg tablet 50 mg PO .at bedtime Qty: 90 0RF buspirone 10 mg tablet 10 mg PO BID Qty: 180 0RF chlorhexidine gluconate [Peridex] 0.12 % mouthwash 15 ml buccal BID Qty: 118 0RF cyclobenzaprine 10 mg tablet 10 mg PO BID Qty: 180 0RF Farxiga 10 mg tablet 10 mg PO QAM Qty: 90 0RF gabapentin 600 mg tablet 600 mg PO BID Qty: 180 0RF metoprolol succinate [Toprol XL] 50 mg tablet extended release 24 hr 50 mg PO DAILY Qty: 90 0RF levothyroxine [Synthroid] 100 mcg tablet 100 mcg PO DAILY Qty: 90 0RF Rx Instructions: dose increase venlafaxine [Effexor XR] 37.5 mg capsule,extended release 24hr 37.5 mg PO DAILY Qty: 90 0RF lidocaine 5 % adhesive patch,medicated 1 patch topical DAILY Qty: 30 0RF Rx Instructions: leave on most painful area for up to 12 hrs fluconazole [Diflucan] 150 mg tablet 150 mg PO DAILY Qty: 1 0RF doxycycline hyclate 100 mg capsule 100 mg PO BID Qty: 14 0RF prednisone 10 mg tablets,dose pack See Rx Instructions PO PER PKG DIR Qty: 21 0RF Rx Instructions: PO PER PKG DIR budesonide 0.5 mg/2 mL suspension for nebulization 0.5 mg inhalation BID Qty: 60 0RF dextromethorphan-guaifenesin [Diabetic Tussin DM] 10-100 mg/5 mL liquid 10 ml PO Q4H PRN (Reason: cough) Qty: 236 0RF albuterol sulfate 2.5 mg /3 mL (0.083 %) solution for nebulization 2.5 mg inhalation QID PRN (Reason: shortness of breath or wheezing) Qty: 75 0 RF (DME) Disposable nebulizer circuit See Rx Instructions .ROUTE .MEDSUPPLY Qty: 1 0RF Rx Instructions: As directed Questran Light 4 gram powder 4 g PO TID Qty: 210 0RF Rx Instructions: administer w/meal; avoid other meds within 1hr before or 4-6hr after dose (DME) lancets [ReliOn Thin Lancets] 26 gauge misc See Rx Instructions .Route Qty: 100 2RF Rx Instructions: use one daily diclofenac sodium 1 % gel 2 g TOPICAL QID PRN (Reason: pain) Qty: 300 0RF Hold Instructions: Doctor's Order (DME) ReliOn Prime Test Strips Strip See Rx Instructions .Route Qty: 100 5RF Rx Instructions: use 3 times day as needed (DME) pen needle, diabetic 33 gauge x 5/32 needle See Rx Instructions .ROUTE .MEDSUPPLY Qty: 100 5RF Rx Instructions: 1 times day Discharge Orders: Discharge ED (Routine); Ordered 08/28/22 Ordered By: Clark Mckeon Referrals: Kiara Murray, PROJECT ANALYST-C [Primary Care Provider] - 4-7 days Discharge Diet: Advance as tolerated Discharge Activity: Resume usual activity Patient Instructions: Costochondritis (ED), Upper Respiratory Infection (ED) Coding Level of Care Code ED Community Recreation Programmer for Cody Beltrán
[2022-08-28 02:43] VITALS: RESP 16
[2022-08-28] MEDS: morphine 4 mg/mL SDV 1 mL IVP (02:43)
[2022-08-28 02:44] LABS: Basophils # 0.1 10^3/uL (0.0-0.1); Eosinophils # 0.5 10^3/uL (0.0-0.8); Eosinophils % 4.6 %; Hematocrit 54.5 % (37.0-47.0); Hemoglobin 17.9 g/dL (11.5-15.3); Lymphocytes # 3.3 10^3/uL (0.8-4.8); Lymphocytes % 33.5 %; Mean Corpuscular HGB Conc 32.8 g/dL (30.0-36.0); Mean Corpuscular Hemoglobin 29.6 pg (28.0-34.0); Mean Corpuscular Volume 90.2 fl (81-99); Mean Platelet Volume 12.3 fL (7.4-10.4); Monocytes # 0.6 10^3/uL (0.2-0.9); Monocytes % 5.8 %; Neutrophils # 5.36 10^3/uL (1.8-7.7); Neutrophils % 54.7 %; Nucleated Red Blood Cells % 0 %; Platelet Count 145 10^3/cmm (130-400); Red Blood Count 6.04 10^6/uL (4.1-5.3); Red Cell Distribution Width 13.8 % (12.1-15.1); White Blood Count 9.8 10^3/uL (4.0-10.0)
[2022-08-28] MEDS: ondansetron 2 mg/ML SDV 2 mL 4 MG IVP (02:44)
[2022-08-28 02:45] VITALS: BP 133/74; PULSE 100; RESP 16; O2SAT 93
[2022-08-28 03:03] LABS: SARS Covid-2 Antigen negative (Negative)
[2022-08-28 03:09] LABS: Alanine Aminotransferase 45 U/L (0-33); Albumin Level 3.8 g/dL (3.5-5.2); Alkaline Phosphatase 142 U/L (35-105); Aspartate Amino Transferase 34 U/L (0-32); Blood Urea Nitrogen 21 mg/dL (8-23); Calcium 9.7 mg/dL (8.5-10.5); Carbon Dioxide 25 mmol/L (22-29); Chloride 97 mmol/L (98-107); Glomerular Filtration Rate 72.9 mL/min (90-130); Glucose 349 mg/dL (65-115); Osmolality Calculated 297 mOsm/kg (285-295); Sodium 135 mmol/L (136-145); Total Bilirubin 0.7 mg/dL (0.15-1.2); Total Protein 7.8 g/dL (6.6-8.7)
[2022-08-28 03:25] VITALS: PULSE 96; RESP 18; O2SAT 95
[2022-08-28 03:29] LABS: Anion Gap 16.8 (5-19); Potassium 3.8 mmol/L (3.5-5.1)
[2022-08-28 03:40] VITALS: BP 118/70; PULSE 93; RESP 12; O2SAT 90
[2022-08-28 03:54] LABS: Troponin(5th) Baseline 6 ng/L (0-10)
[2022-08-28 04:00] VITALS: BP 104/69; PULSE 97; RESP 14; O2SAT 91
== END 2022-08-28 04:18 | disposition home or self-care (01) ==
PROVIDERS: Emergency Provider Emergency Medicine; PCP Nurse Practitioner
DX: J06.9 Acute upper respiratory infection, unspecified (principal); R07.9 Chest pain, unspecified; Z79.4 Long term (current) use of insulin; Z20.822 Contact with and (suspected) exposure to COVID-19; E11.9 Type 2 diabetes mellitus without complications; I10 Essential (primary) hypertension
CPT/HCPCS: 71045; 80053; 84484; 85025; 87426; 93005; 94640; 96374; 96375; 99285; J2270; J2405

== ENCOUNTER → 2022-10-08 14:56 | Outpatient (BNVA) | payer OTHER, MEDICAID, SELFPAY | PROVIDERS: PCP Nurse Practitioner; Visit Provider Nurse Practitioner | DX: E11.65 Type 2 diabetes mellitus with hyperglycemia (principal); Z79.4 Long term (current) use of insulin; N39.0 Urinary tract infection, site not specified | CPT/HCPCS: 80053; 80061; 81000; 83036; 84443; 87077; 87086; 87184 ==

== ENCOUNTER → 2023-01-04 15:41 | Outpatient (BNVA) | payer OTHER, MEDICAID, SELFPAY | PROVIDERS: PCP Nurse Practitioner; Visit Provider Nurse Practitioner | DX: E11.65 Type 2 diabetes mellitus with hyperglycemia (principal); Z79.4 Long term (current) use of insulin; K31.89 Other diseases of stomach and duodenum; M47.16 Other spondylosis with myelopathy, lumbar region; F41.9 Anxiety disorder, unspecified; F32.9 Major depressive disorder, single episode, unspecified; K06.9 Disorder of gingiva and edentulous alveolar ridge, unspecified; B37.31 Acute candidiasis of vulva and vagina; E03.8 Other specified hypothyroidism; R00.0 Tachycardia, unspecified; R53.1 Weakness | CPT/HCPCS: 80053; 80061; 81000; 83036; 84439; 84443; 84481; 85025 ==

== ENCOUNTER → 2023-02-16 16:43 | Outpatient (BNVA) | payer OTHER, MEDICAID, SELFPAY | PROVIDERS: PCP Nurse Practitioner; Visit Provider Nurse Practitioner | DX: E11.65 Type 2 diabetes mellitus with hyperglycemia (principal); R79.89 Other specified abnormal findings of blood chemistry; Z79.4 Long term (current) use of insulin | CPT/HCPCS: 80053; 84439; 84443; 84481 ==

== ENCOUNTER 2023-02-17 07:53 | Oncology outpatient (recurring) (ONCR) | payer OTHER, MEDICAID, SELFPAY ==
[2023-02-17 09:55] LABS: Basophils # 0.1 10^3/uL (0.0-0.1); Basophils % 1.6 %; Eosinophils # 0.4 10^3/uL (0.0-0.8); Eosinophils % 7.6 %; Hematocrit 51.7 % (36-47); Lymphocytes # 1.8 10^3/uL (0.8-4.8); Lymphocytes % 34.9 %; Mean Corpuscular HGB Conc 32.3 g/dL (30-55); Mean Corpuscular Hemoglobin 29.7 pg (27-33); Mean Corpuscular Volume 91.8 fl (85-98); Mean Platelet Volume 10.3 fL (7.4-10.4); Monocytes # 0.4 10^3/uL (0.2-0.9); Monocytes % 7.8 %; Neutrophils # 2.41 10^3/uL (1.8-7.7); Neutrophils % 47.9 %; Nucleated Red Blood Cells % 0 %; Platelet Count 146 10^3/cmm (157-399); Red Blood Count 5.63 10^6/uL (3.85-5.65); Red Cell Distribution Width 14.2 % (12.1-15.1); White Blood Count 5.02 10^3/uL (3.29-11.43)
[2023-02-17 10:37] LABS: Alanine Aminotransferase 32 U/L (0-33); Alkaline Phosphatase 94 U/L (35-105); Anion Gap 12.9 (5-19); Aspartate Amino Transferase 43 U/L (0-32); Blood Urea Nitrogen 19 mg/dL (8-23); Carbon Dioxide 22 mmol/L (22-29); Chloride 109 mmol/L (98-107); Ferritin 986 ng/mL (15-150); Globulin 3.6 g/dL (1.3-4.6); Glomerular Filtration Rate 63.7 mL/min (90-130); Glucose 110 mg/dL (65-115); Iron 116 ug/dL (37-145); Lactate Dehydrogenase 159 U/L (135-214); Osmolality Calculated 293 mOsm/kg (285-295); Percent Saturation 34.1 % (20-50); Potassium 3.9 mmol/L (3.5-5.1); Sodium 140 mmol/L (136-145); Total Bilirubin 0.5 mg/dL (0.15-1.2); Total Iron Binding Capacity 340 mcg/dl; Total Protein 7.6 g/dL (6.6-8.7); Unsaturated Iron Binding 224 ug/dL (112-347); Vitamin B12 769 pg/mL (232-1245)
[2023-02-17 10:40] LABS: Folate Level 12.6 ng/mL (4.8-37.3)
[2023-02-18 21:50] LABS: Lupus DRVVT 1:1 Mix CORRECTED (CORRECTED)
[2023-02-18 21:53] LABS: Lupus DRVVT Confirm POSITIVE (NEGATIVE); PTT-LA-Screen 40 sec (< OR = 40)
[2023-02-19 12:05] LABS: Erythropoietin 10.7 mIU/mL (2.6-18.5)
[2023-02-22 12:51] LABS: Anti-Nuclear Antibody Screen POSITIVE (NEGATIVE)
[2023-02-22 14:04] LABS: P190 BCR ALB1 NOT DETECTED; P190 BCR ALB1 Yes Test Yes; P210 BCR ALB1 NOT DETECTED; P210 BCR ALB1 Yes Test Yes; Prior Results NG; Source whole blood
[2023-03-02 14:55] LABS: CALR Exon 9 Mutation NOT DETECTED (NOT DETECTED); CSF3R Exon 14/17 Mutation NOT DETECTED (NOT DETECTED); JAK2 Exon 12 Mutation NOT DETECTED (NOT DETECTED); JAK2 V617 Block Specimen ID NG; JAK2 V617 Clinical Indication NG; JAK2 V617 Mutation NOT DETECTED (NOT DETECTED); JAK2 V617 Specimen Source NG; MPL Exon 12 Mutation NOT DETECTED (NOT DETECTED)
== END 2023-03-18 23:59 | disposition home or self-care (01) ==
PROVIDERS: PCP Nurse Practitioner; Visit Provider Internal Medicine Medical Oncology
DX: D75.1 Secondary polycythemia (principal); E11.9 Type 2 diabetes mellitus without complications; I10 Essential (primary) hypertension; J44.9 Chronic obstructive pulmonary disease, unspecified; Z79.899 Other long term (current) drug therapy
CPT/HCPCS: 36415; 80053; 81206; 81207; 81270; 81279; 81339; 81479; 82607; 82668; 82728; 82746; 83540; 83550; 83615; 85025; 85613; 85730; 86038

== ENCOUNTER 2023-03-02 08:00 | Outpatient (CLI) | payer OTHER, MEDICAID, SELFPAY ==
--- NOTE | 2023-03-02 08:00 | US_ITS ---
WS: [id number] Complete ABDOMINAL ULTRASOUND HISTORY: liver and spleen evaluation COMPARISON: None available. Liver: 13.3 cm in length. Normal size liver and echogenicity. No bile duct dilatation or mass. Portal Vein: Normal hepatopetal flow with monophasic waveform. Gallbladder: Prior cholecystectomy. CBD: 0.4 cm Pancreas: Normal size and echogenicity. Right kidney: 11.3 cm x 5.0 x 5.4 cm. Cortex: 1.3 cm. Normal size and echogenicity. No hydronephrosis or mass. Left kidney: 11.5 cm x 5.2 cm x 5.2 cm. Cortex: 1.4 cm. Normal size and echogenicity. No hydronephrosis or mass. Spleen: 11.3 cm in length. Normal. Aorta and IVC: Unremarkable abdominal aorta and IVC. Impression: 1. Prior cholecystectomy. 2. Otherwise normal abdomen ultrasound.
== END 2023-03-02 08:01 | disposition home or self-care (01) ==
LOC: RAD 08:00
PROVIDERS: PCP Nurse Practitioner; Visit Provider Internal Medicine Medical Oncology
DX: D75.1 Secondary polycythemia (principal); Z90.49 Acquired absence of other specified parts of digestive tract
CPT/HCPCS: 76700

== ENCOUNTER 2023-03-29 16:05 | Oncology outpatient (recurring) (ONCR) | payer OTHER, SELFPAY ==
--- NOTE | 2023-03-24 13:15 | PC.NURSE ---
Stool specimen ordered by Dr. Pagan. Patient provided with supplies and educated how to collect stool specimen at home. Patient educated to bring stool sample to [facility]. Patient verbalized understanding and stated she will bring stool sample to [facility] lab tomorrow, 03/25/23.
[2023-03-24 13:17] LABS: Basophils # 0.1 10^3/uL (0.0-0.1); Basophils % 1.5 %; Eosinophils # 0.7 10^3/uL (0.0-0.8); Eosinophils % 10.4 %; Hematocrit 55.8 % (36-47); Lymphocytes # 2.5 10^3/uL (0.8-4.8); Lymphocytes % 35.4 %; Mean Corpuscular HGB Conc 32.1 g/dL (30-55); Mean Corpuscular Hemoglobin 29.5 pg (27-33); Mean Corpuscular Volume 92.1 fl (85-98); Monocytes # 0.6 10^3/uL (0.2-0.9); Monocytes % 7.7 %; Neutrophils # 3.17 10^3/uL (1.8-7.7); Neutrophils % 44.4 %; Nucleated Red Blood Cells % 0 %; Platelet Count 194 10^3/cmm (157-399); Red Blood Count 6.06 10^6/uL (3.85-5.65); Red Cell Distribution Width 14.2 % (12.1-15.1); White Blood Count 7.14 10^3/uL (3.29-11.43)
[2023-03-24 13:40] LABS: Alanine Aminotransferase 49 U/L (0-33); Alkaline Phosphatase 99 U/L (35-105); Aspartate Amino Transferase 51 U/L (0-32); Blood Urea Nitrogen 25 mg/dL (8-23); Calcium 9.3 mg/dL (8.5-10.5); Carbon Dioxide 20 mmol/L (22-29); Chloride 105 mmol/L (98-107); Creatinine Clr Calc Pharmacy 74.0975; Globulin 3.9 g/dL (1.3-4.6); Glomerular Filtration Rate 63.7 mL/min (90-130); Glucose 87 mg/dL (65-115); Osmolality Calculated 286 mOsm/kg (285-295); Sodium 136 mmol/L (136-145); Total Bilirubin 0.7 mg/dL (0.15-1.2); Total Protein 7.9 g/dL (6.6-8.7)
[2023-03-24 13:45] LABS: Anion Gap 15.3 (5-19); Potassium 4.3 mmol/L (3.5-5.1)
[2023-03-24 14:28] LABS: Hepatitis A Antibody IgM Non-Reactive (Nonreactive); Hepatitis B Core AB, Total Non-Reactive (Nonreactive); Hepatitis B Surface AB 14.5 (11.5-1000); Hepatitis B Surface Antigen Non-Reactive (Nonreactive); Hepatitis C Virus Antibody Non-Reactive (Nonreactive)
== END 2023-04-18 23:59 | disposition home or self-care (01) ==
PROVIDERS: Internal Medicine; PCP Nurse Practitioner; Visit Provider Internal Medicine Hematology & Oncology
DX: D75.1 Secondary polycythemia (principal)
CPT/HCPCS: 36415; 80053; 85025; 86705; 86706; 86709; 86803; 87338; 87340

== ENCOUNTER → 2023-03-30 16:57 | Outpatient (BNVA) | payer OTHER, SELFPAY | PROVIDERS: PCP Nurse Practitioner; Visit Provider Nurse Practitioner | DX: R79.89 Other specified abnormal findings of blood chemistry (principal); E78.2 Mixed hyperlipidemia; E11.65 Type 2 diabetes mellitus with hyperglycemia; Z79.4 Long term (current) use of insulin; E11.9 Type 2 diabetes mellitus without complications; M47.16 Other spondylosis with myelopathy, lumbar region; F41.9 Anxiety disorder, unspecified; F32.9 Major depressive disorder, single episode, unspecified; K06.9 Disorder of gingiva and edentulous alveolar ridge, unspecified; E03.8 Other specified hypothyroidism; R00.0 Tachycardia, unspecified; K31.89 Other diseases of stomach and duodenum; G47.10 Hypersomnia, unspecified | CPT/HCPCS: 80061; 83036 ==

== ENCOUNTER 2023-06-11 09:57 | Outpatient (CLI) | payer OTHER, SELFPAY ==
--- NOTE | 2023-06-11 10:15 | MR_ITS ---
WS: [id number] MRI BRAIN WITH AND WITHOUT CONTRAST HISTORY: R51.9 - Headache, unspecified COMPARISON: Noncontrast CT head 02/03/2022 TECHNIQUE: Multiplanar imaging performed through the brain with MultiHance 20 ml's IV. No acute infarcts are seen. Hernandez-white matter differentiation is well preserved. Very minimal volume loss. No prior infarcts. No significant small vessel ischemic disease. No susceptibility artifacts or prior lacunar infarcts. Normal hippocampal formations. Ventricles and extra-axial spaces are normal. Clivus and pituitary gland are normal. Visualized posterior fossa and brainstem are also normal. Postcontrast images are negative for masses or vascular malformations. Dural venous sinuses are normal. Paranasal sinuses: Well aerated with no significant disease. Mastoid air cells: Normal. Calvarium and scalp: Normal. IMPRESSION: 1. No prior infarct or acute ischemia. 2. No hemorrhage or hemosiderin. 3. Very minimal volume loss. No significant chronic white matter disease. 4. Negative posterior fossa. 5. No mass or abnormal enhancement.
[2023-06-11] MEDS: gadobenate dimeglumine 20 mL vial IV (11:12)
== END 2023-06-11 09:58 | disposition home or self-care (01) ==
LOC: RAD 09:57
PROVIDERS: PCP Nurse Practitioner; Visit Provider Psychiatry & Neurology Neurology
DX: R51.9 Headache, unspecified (principal); R55 Syncope and collapse; R42 Dizziness and giddiness
CPT/HCPCS: 70553; A9577

== ENCOUNTER → 2023-06-15 16:52 | Outpatient (BNVA) | payer OTHER, SELFPAY | PROVIDERS: PCP Nurse Practitioner; Visit Provider Nurse Practitioner | DX: E03.8 Other specified hypothyroidism; R79.89 Other specified abnormal findings of blood chemistry; E11.9 Type 2 diabetes mellitus without complications | CPT/HCPCS: 80053; 80061; 81000; 83036; 84439; 84443; 84481 ==

== ENCOUNTER 2023-06-24 12:03 | Oncology outpatient (recurring) (ONCR) | payer OTHER, SELFPAY ==
[2023-06-24 13:37] LABS: Basophils # 0.1 10^3/uL (0.0-0.1); Basophils % 1.2 %; Eosinophils % 13.2 %; Hematocrit 52.1 % (36-47); Lymphocytes # 2.7 10^3/uL (0.8-4.8); Lymphocytes % 36.3 %; Mean Corpuscular HGB Conc 32.4 g/dL (30-55); Mean Corpuscular Hemoglobin 29.4 pg (27-33); Mean Corpuscular Volume 90.6 fl (85-98); Mean Platelet Volume 10.2 fL (7.4-10.4); Monocytes # 0.6 10^3/uL (0.2-0.9); Monocytes % 8.3 %; Neutrophils # 3.05 10^3/uL (1.8-7.7); Neutrophils % 40.7 %; Nucleated Red Blood Cells % 0 %; Platelet Count 136 10^3/cmm (157-399); Red Blood Count 5.75 10^6/uL (3.85-5.65); Red Cell Distribution Width 14.6 % (12.1-15.1); White Blood Count 7.49 10^3/uL (3.29-11.43)
== END 2023-07-18 23:59 | disposition home or self-care (01) ==
LOC: ONCMED 12:05
PROVIDERS: Nurse Practitioner Family; PCP Nurse Practitioner; Visit Provider Internal Medicine Medical Oncology
DX: D75.1 Secondary polycythemia (principal)
CPT/HCPCS: 36415; 85025

== ENCOUNTER → 2023-08-31 15:59 | Outpatient (BNVA) | payer OTHER, SELFPAY | PROVIDERS: PCP Nurse Practitioner; Visit Provider Nurse Practitioner | DX: E11.65 Type 2 diabetes mellitus with hyperglycemia (principal); Z79.4 Long term (current) use of insulin; E11.9 Type 2 diabetes mellitus without complications; M47.16 Other spondylosis with myelopathy, lumbar region; F41.9 Anxiety disorder, unspecified; F32.9 Major depressive disorder, single episode, unspecified; K06.9 Disorder of gingiva and edentulous alveolar ridge, unspecified; E03.8 Other specified hypothyroidism; R79.89 Other specified abnormal findings of blood chemistry; R00.0 Tachycardia, unspecified; K31.89 Other diseases of stomach and duodenum | CPT/HCPCS: 80053; 80061; 81000; 83036; 84439; 84443; 84481; 85025 ==

== ENCOUNTER → 2023-09-01 07:42 | Outpatient (BNVA) | payer OTHER, SELFPAY | PROVIDERS: PCP Nurse Practitioner; Visit Provider Nurse Practitioner | DX: E11.65 Type 2 diabetes mellitus with hyperglycemia (principal); Z79.4 Long term (current) use of insulin; E11.9 Type 2 diabetes mellitus without complications; M47.16 Other spondylosis with myelopathy, lumbar region; F41.9 Anxiety disorder, unspecified; F32.9 Major depressive disorder, single episode, unspecified; K06.9 Disorder of gingiva and edentulous alveolar ridge, unspecified; E03.8 Other specified hypothyroidism; R79.89 Other specified abnormal findings of blood chemistry; R00.0 Tachycardia, unspecified; K31.89 Other diseases of stomach and duodenum; N39.0 Urinary tract infection, site not specified | CPT/HCPCS: 87077; 87086; 87184 ==

== ENCOUNTER 2023-09-23 13:04 | Oncology outpatient (recurring) (ONCR) | payer OTHER, SELFPAY ==
[2023-09-23 16:07] LABS: Basophils # 0.1 10^3/uL (0.0-0.1); Basophils % 1.8 %; Eosinophils # 0.6 10^3/uL (0.0-0.8); Eosinophils % 9.4 %; Hematocrit 50.4 % (36-47); Lymphocytes # 2.9 10^3/uL (0.8-4.8); Lymphocytes % 43.1 %; Mean Corpuscular HGB Conc 32.7 g/dL (30-55); Mean Corpuscular Hemoglobin 30.1 pg (27-33); Mean Corpuscular Volume 91.8 fl (85-98); Mean Platelet Volume 10.6 fL (7.4-10.4); Monocytes # 0.5 10^3/uL (0.2-0.9); Monocytes % 7.6 %; Neutrophils # 2.55 10^3/uL (1.8-7.7); Neutrophils % 37.8 %; Nucleated Red Blood Cells % 0 %; Platelet Count 178 10^3/cmm (157-399); Red Blood Count 5.49 10^6/uL (3.85-5.65); Red Cell Distribution Width 15.6 % (12.1-15.1); White Blood Count 6.73 10^3/uL (3.29-11.43)
[2023-09-23 16:25] LABS: Alanine Aminotransferase 39 U/L (0-33); Albumin Level 4.2 g/dL (3.5-5.2); Alkaline Phosphatase 98 U/L (35-105); Aspartate Amino Transferase 47 U/L (0-32); Blood Urea Nitrogen 20 mg/dL (8-23); Calcium 9.3 mg/dL (8.5-10.5); Carbon Dioxide 24 mmol/L (22-29); Chloride 102 mmol/L (98-107); Globulin 4.3 g/dL (1.3-4.6); Glomerular Filtration Rate 63.4 mL/min (90-130); Glucose 93 mg/dL (65-115); Osmolality Calculated 288 mOsm/kg (285-295); Sodium 138 mmol/L (136-145); Total Bilirubin 0.7 mg/dL (0.15-1.2); Total Protein 8.5 g/dL (6.6-8.7)
[2023-09-23 18:16] LABS: INR 1.04 (0.8-1.2)
== END 2023-10-17 23:59 | disposition home or self-care (01) ==
LOC: ONCMED 13:05
PROVIDERS: Internal Medicine; PCP Nurse Practitioner; Visit Provider Internal Medicine Medical Oncology
DX: D75.1 Secondary polycythemia (principal); D69.6 Thrombocytopenia, unspecified
CPT/HCPCS: 36415; 80053; 85025; 85610; 86023

== ENCOUNTER → 2023-10-13 10:12 | Outpatient (BNVA) | payer OTHER, SELFPAY | PROVIDERS: PCP Nurse Practitioner; Visit Provider Internal Medicine Rheumatology | DX: Z79.899 Other long term (current) drug therapy (principal); M19.90 Unspecified osteoarthritis, unspecified site; R76.8 Other specified abnormal immunological findings in serum; Z11.59 Encounter for screening for other viral diseases; Z11.1 Encounter for screening for respiratory tuberculosis; M45.6 Ankylosing spondylitis lumbar region; M19.041 Primary osteoarthritis, right hand; M19.072 Primary osteoarthritis, left ankle and foot | CPT/HCPCS: 36415; 73130; 73562; 73630; 82306; 86160; 86162; 86200; 86235; 86255; 86376; 86431; 86480; 86704; 86800; 86803; 86812; 87340 ==

== ENCOUNTER → 2023-11-16 16:20 | Outpatient (BNVA) | payer OTHER, SELFPAY | PROVIDERS: PCP Nurse Practitioner; Visit Provider Nurse Practitioner | DX: E11.65 Type 2 diabetes mellitus with hyperglycemia (principal); Z79.4 Long term (current) use of insulin; E03.8 Other specified hypothyroidism; R79.89 Other specified abnormal findings of blood chemistry; M47.16 Other spondylosis with myelopathy, lumbar region; K31.89 Other diseases of stomach and duodenum; N39.0 Urinary tract infection, site not specified; Z79.899 Other long term (current) drug therapy | CPT/HCPCS: 80053; 81000; 83036; 84439; 84443; 84481; 87086 ==

== ENCOUNTER → 2023-12-29 11:10 | Outpatient (BNVA) | payer OTHER, MEDICARE, SELFPAY | PROVIDERS: PCP Nurse Practitioner; Visit Provider Internal Medicine Rheumatology | DX: Z79.899 Other long term (current) drug therapy (principal); M19.90 Unspecified osteoarthritis, unspecified site | CPT/HCPCS: 36415; 80076; 82565; 85025; 85651; 86140 ==

== ENCOUNTER → 2024-02-02 16:24 | Outpatient (BNVA) | payer OTHER, MEDICARE, SELFPAY | PROVIDERS: PCP Nurse Practitioner; Visit Provider Nurse Practitioner | DX: E11.65 Type 2 diabetes mellitus with hyperglycemia (principal); Z79.4 Long term (current) use of insulin; R00.0 Tachycardia, unspecified; E78.2 Mixed hyperlipidemia; E03.8 Other specified hypothyroidism; E55.9 Vitamin D deficiency, unspecified | CPT/HCPCS: 80053; 80061; 81000; 82306; 84439; 84443; 84481; 85025 ==

== ENCOUNTER 2024-02-11 09:30 | Oncology outpatient (recurring) (ONCR) | payer OTHER, MEDICARE, SELFPAY ==
[2024-02-09 14:43] LABS: Basophils # 0.1 10^3/uL (0.0-0.1); Basophils % 1.7 %; Eosinophils # 0.3 10^3/uL (0.0-0.8); Eosinophils % 6.3 %; Hematocrit 49.1 % (36-47); Lymphocytes # 1.8 10^3/uL (0.8-4.8); Lymphocytes % 38.1 %; Mean Corpuscular HGB Conc 32.4 g/dL (30-55); Mean Corpuscular Hemoglobin 28.8 pg (27-33); Mean Corpuscular Volume 88.8 fl (85-98); Mean Platelet Volume 11.5 fL (7.4-10.4); Monocytes # 0.6 10^3/uL (0.2-0.9); Monocytes % 13.1 %; Neutrophils # 1.89 10^3/uL (1.8-7.7); Neutrophils % 40.8 %; Nucleated Red Blood Cells % 0 %; Platelet Count 145 10^3/cmm (157-399); Red Blood Count 5.53 10^6/uL (3.85-5.65); Red Cell Distribution Width 14.2 % (12.1-15.1); White Blood Count 4.64 10^3/uL (3.29-11.43)
[2024-02-09 15:01] LABS: Alanine Aminotransferase 33 U/L (0-33); Albumin Level 3.7 g/dL (3.5-5.2); Alkaline Phosphatase 84 U/L (35-105); Anion Gap 12.6 (5-19); Aspartate Amino Transferase 42 U/L (0-32); Blood Urea Nitrogen 19 mg/dL (8-23); Calcium 8.3 mg/dL (8.5-10.5); Carbon Dioxide 25 mmol/L (22-29); Chloride 105 mmol/L (98-107); Globulin 3.1 g/dL (1.3-4.6); Glomerular Filtration Rate 63.4 mL/min (90-130); Glucose 138 mg/dL (65-115); Osmolality Calculated 290 mOsm/kg (285-295); Potassium 4.6 mmol/L (3.5-5.1); Sodium 138 mmol/L (136-145); Total Bilirubin 0.9 mg/dL (0.15-1.2); Total Protein 6.8 g/dL (6.6-8.7)
--- NOTE | 2024-02-11 09:30 | US_ITS ---
WS: [id number] ULTRASOUND ABDOMEN CLINICAL INFORMATION: M54.9 - Dorsalgia, unspecified FINDINGS: Liver Size: Normal. Craniocaudal length: 15.8 cm. Echogenicity: Normal. Surface nodularity: None. Mass (size and location): None. Bile ducts Intrahepatic ducts: Normal. Common bile duct diameter: 0.4 cm. Cholecystectomy. Pancreas Not well visualized Spleen Splenomegaly: None. Craniocaudal length: 10.4 cm. Right kidney: Normal. Hydronephrosis: None. Size: 10.0 cm x 5.0 cm x 4.7 cm Left kidney: Normal. Hydronephrosis: None. Size: 11.1 cm x 5.3 cm x 5.0 cm. Abdominal aorta and IVC Visualized portions are normal. Ascites: None. US/US abdomen complete* [id number] IMPRESSION: 1. Prior cholecystectomy.] 2. Normal liver. 3. No hydronephrosis in either kidney. 4. Normal spleen. 5. Pancreas not well visualized.
== END 2024-02-17 23:59 | disposition home or self-care (01) ==
LOC: ONCMED 02-14 10:39
PROVIDERS: Nurse Practitioner Family; PCP Nurse Practitioner; Visit Provider Nurse Practitioner
DX: M54.9 Dorsalgia, unspecified (principal); R10.12 Left upper quadrant pain; R92.323 Mammographic fibroglandular density, bilateral breasts; Z53.9 Procedure and treatment not carried out, unspecified reason
CPT/HCPCS: 36415; 76700; 80053; 85025

== ENCOUNTER 2024-02-16 10:18 | Outpatient (CLI) | payer OTHER, MEDICARE, SELFPAY ==
--- NOTE | 2024-02-16 10:20 | MM_ITS ---
WS: [id number] BILATERAL SCREENING DIGITAL TOMOSYNTHESIS MAMMOGRAM WITH CAD HISTORY: SCREENING COMPARISON: 12/03/2020, 03/27/2015 Bilateral CC and MLO views with tomosynthesis and synthetic mammography submitted. Computer aided det ection analyzed. Breast composition: There are scattered areas of fibroglandular density. No suspicious masses, microc alcifications or architectural distortion. Benign coarse calcification LEFT breast. Noncalcified foca l asymmetry in the central RIGHT breast near 10:00. This asymmetry was also present in 2020. MM/MM [facility] tomosynthesis [id number] IMPRESSION: BI-RADS: 2 - Benign. FOLLOW UP: 1 Year Follow-up
== END 2024-02-16 10:19 | disposition home or self-care (01) ==
PROVIDERS: PCP Nurse Practitioner; Visit Provider Nurse Practitioner
DX: Z12.31 Encounter for screening mammogram for malignant neoplasm of breast (principal); R92.323 Mammographic fibroglandular density, bilateral breasts; R92.1 Mammographic calcification found on diagnostic imaging of breast; N64.89 Other specified disorders of breast
CPT/HCPCS: 77063; 77067

== ENCOUNTER → 2024-06-14 16:01 | Outpatient (BNVA) | payer MEDICARE, SELFPAY | PROVIDERS: PCP Nurse Practitioner; Visit Provider Nurse Practitioner | DX: E11.65 Type 2 diabetes mellitus with hyperglycemia (principal); Z79.4 Long term (current) use of insulin; E03.8 Other specified hypothyroidism; I10 Essential (primary) hypertension | CPT/HCPCS: 80053; 80061; 84439; 84443; 84481 ==

== ENCOUNTER → 2024-08-16 16:20 | Outpatient (BNVA) | payer MEDICARE, SELFPAY | PROVIDERS: PCP Nurse Practitioner; Visit Provider Nurse Practitioner | DX: E55.9 Vitamin D deficiency, unspecified (principal); E78.2 Mixed hyperlipidemia; E11.65 Type 2 diabetes mellitus with hyperglycemia; Z79.4 Long term (current) use of insulin; E03.8 Other specified hypothyroidism | CPT/HCPCS: 80053; 80061; 81000; 82306; 82607; 83036; 84439; 84443; 84481; 87077; 87086; 87184 ==

== ENCOUNTER 2024-09-19 12:42 | Oncology outpatient (recurring) (ONCR) | payer MEDICARE, SELFPAY ==
[2024-09-19 13:20] LABS: Basophils # 0.1 10^3/uL (0.0-0.1); Eosinophils # 0.3 10^3/uL (0.0-0.8); Eosinophils % 6.5 %; Hematocrit 48.2 % (36-47); Lymphocytes # 1.7 10^3/uL (0.8-4.8); Lymphocytes % 37.3 %; Mean Corpuscular HGB Conc 32.6 g/dL (30-55); Mean Corpuscular Hemoglobin 28.1 pg (27-33); Mean Corpuscular Volume 86.2 fl (85-98); Mean Platelet Volume 10.8 fL (7.4-10.4); Monocytes # 0.5 10^3/uL (0.2-0.9); Monocytes % 11.4 %; Neutrophils % 42.4 %; Nucleated Red Blood Cells % 0 %; Platelet Count 119 10^3/cmm (157-399); Red Blood Count 5.59 10^6/uL (3.85-5.65); Red Cell Distribution Width 16.3 % (12.1-15.1); White Blood Count 4.48 10^3/uL (3.29-11.43)
[2024-09-19 13:40] LABS: Alanine Aminotransferase 30 U/L (0-33); Albumin Level 3.5 g/dL (3.5-5.2); Alkaline Phosphatase 125 U/L (35-105); Anion Gap 15.7 (5-19); Aspartate Amino Transferase 49 U/L (0-32); Blood Urea Nitrogen 9 mg/dL (8-23); Calcium 8.9 mg/dL (8.5-10.5); Carbon Dioxide 22 mmol/L (22-29); Chloride 107 mmol/L (98-107); Globulin 3.7 g/dL (1.3-4.6); Glomerular Filtration Rate 84.5 mL/min (90-130); Glucose 88 mg/dL (65-115); Osmolality Calculated 290 mOsm/kg (285-295); Potassium 3.7 mmol/L (3.5-5.1); Sodium 141 mmol/L (136-145); Total Bilirubin 1.1 mg/dL (0.15-1.2); Total Protein 7.2 g/dL (6.6-8.7)
== END 2024-10-16 23:59 | disposition home or self-care (01) ==
PROVIDERS: Internal Medicine Medical Oncology; PCP Nurse Practitioner; Visit Provider Nurse Practitioner
DX: D69.6 Thrombocytopenia, unspecified (principal); R03.0 Elevated blood-pressure reading, without diagnosis of hypertension; Z79.899 Other long term (current) drug therapy; D75.1 Secondary polycythemia
CPT/HCPCS: 36415; 80053; 85025; 99214

== ENCOUNTER → 2024-12-26 17:23 | Outpatient (BNVA) | payer MEDICARE, SELFPAY | PROVIDERS: PCP Nurse Practitioner; Visit Provider Nurse Practitioner | DX: E11.65 Type 2 diabetes mellitus with hyperglycemia (principal); Z79.4 Long term (current) use of insulin; R79.89 Other specified abnormal findings of blood chemistry; E03.8 Other specified hypothyroidism | CPT/HCPCS: 80053; 80061; 81000; 83036; 84439; 84443; 84481 ==

== ENCOUNTER 2025-03-06 09:34 | Outpatient (CLI) | payer MEDICARE, SELFPAY ==
--- NOTE | 2025-03-06 09:39 | MM_ITS ---
WS: [id number] BILATERAL 3D TOMOSYNTHESIS DIGITAL SCREENING MAMMOGRAPHY WITH CAD CLINICAL INFORMATION: SCREENING HISTORY: Screening mammogram. No current complaints. COMPARISON: 2023 TECHNIQUE: Bilateral CC and MLO views. FINDINGS: Scattered fibroglandular densities bilaterally. No suspicious focal mass, asymmetry, calcifications, or architectural distortion. No evidence of malignancy. Lucent centered calcification LEFT breast MM/MM [facility] tomosynthesis [id number] IMPRESSION: DENSITY: There are scattered areas of fibroglandular density. BI-RADS: 2 - Benign. FOLLOW UP: 1 Year Follow-up Recommend return to annual screening mammography.
== END 2025-03-06 09:35 | disposition home or self-care (01) ==
LOC: RAD 09:36
PROVIDERS: PCP Nurse Practitioner; Visit Provider Nurse Practitioner
DX: Z12.31 Encounter for screening mammogram for malignant neoplasm of breast (principal); R92.323 Mammographic fibroglandular density, bilateral breasts; R92.1 Mammographic calcification found on diagnostic imaging of breast
CPT/HCPCS: 77063; 77067